=== PATIENT | female | born 1965 ===

== ENCOUNTER 2019-10-02 06:40 | Day surgery (SDC) | payer OTHER ==
[~2019-10-02 06:40] MED LIST: ATENOLOL25 GM MC
== END 2019-10-02 14:00 | disposition home or self-care (01) ==
LOC: AMB-ENDOS 06:40
PROVIDERS: ATTEND Surgery
DX: D12.8 Benign neoplasm of rectum (principal); Z12.11 Encounter for screening for malignant neoplasm of colon